=== PATIENT | male | born 1965 | race Caucasian/White ===

== ENCOUNTER → 2021-08-19 | Day surgery (SDC) | payer OTHER ==
[~2021-08-19] VITALS: Ht 185.4 cm; Wt 102.5 kg
[~2021-08-19] MED LIST: ALLOPURINOL100 MG PO; DICLOFENAC SODI75 MG PO
[2021-08-19 10:54] LABS: HCT 48.6 % (42.0-52.0); HGB 16.7 g/dl (13.2-18.0); MCH 31.8 pg (25.0-31.0); MCHC 34.4 g/dL (32.0-36.0); MCV 92.6 fL (78.0-100.0); MPV 9.5 fL (6.0-9.5); RBC 5.25 M/uL (4.70-6.00); RDW 12.7 % (11.5-14.0); WBC 7.8 K/uL (4.0-10.5)
[2021-08-19 11:09] LABS: ALBUMIN 4.3 g/dL (3.4-5.0); BILIRUBIN - TOTAL 0.6 mg/dL (0.2-1.0); BUN/CREAT RATIO (CALC) 19.5 RATIO; CREATININE 0.87 mg/dL (0.67-1.17); TOTAL PROTEIN 8.3 g/dL (6.4-8.2)
== END | disposition home or self-care (01) ==
LOC: FAS 09:50
PROVIDERS: Surgery
DX: D12.8 Benign neoplasm of rectum (principal); K57.30 Diverticulosis of large intestine without perforation or abscess without bleeding; M10.9 Gout, unspecified; Z90.49 Acquired absence of other specified parts of digestive tract; Z87.891 Personal history of nicotine dependence; Z88.0 Allergy status to penicillin; Z79.899 Other long term (current) drug therapy
CPT/HCPCS: 36415; 80053; 93005; J2250; J2704; J7120